=== PATIENT | female | born 1945 | race Caucasian/White ===

== ENCOUNTER 2017-06-24 11:03 | Outpatient (CLI) | payer SELFPAY ==
[2017-06-24 12:20] LABS: THYROID STIMULATING HORMONE < 0.08 uIU/mL (0.34-5.60)
== END 2017-06-24 11:04 | disposition home or self-care (01) ==
LOC: LAB 11:03
PROVIDERS: ATTEND Surgery
DX: E03.9 Hypothyroidism, unspecified (principal)
CPT/HCPCS: 36415; 84439; 84443; 84480